=== PATIENT | male | born 1960 | race Caucasian/White ===

== ENCOUNTER 2020-07-13 21:46 | Inpatient (IN) | payer OTHER, SELFPAY ==
[2020-07-13 21:48] VITALS: BP 195/106; PULSE 103; RESP 18; TEMP 36.3; O2SAT 95; BMI 44.2
[2020-07-13] MEDS: Cefazolin 1 GM/50 ML BAG IV (22:35)
[2020-07-13 22:54] LABS: Absolute Neutrophil Count 6.4 X10^3/uL (2.0-7.7); Basophil# 0.04 X10^3/uL; Basophil% 0.4 % (0-1); Eosinophil# 0.27 X10^3/uL; Hematocrit 34.6 % (40-54); Hemoglobin 10.8 g/dL (13.0-16.5); Lymphocyte % 15.4 % (19-41); Mean Corp Hgb Conc 31.2 g/dL (32-36); Mean Corpuscular Hgb 27.4 pg (27.0-32.0); Mean Corpuscular Volume 87.8 fL (80-94); Mean Platelet Vol. 9.4 fl (6.2-12.0); Monocyte# 0.87 X10^3/uL; Monocyte% 9.6 % (0-10); NRBC Flagged by Analyzer 0 % (0-5); Neutrophil % 70.5 % (47-70); Platelet Count 162 K/mm3 (150-450); RBC Distribution Width SD 42.1 fl (35.1-43.9); Red Blood Count 3.94 M/mm3 (4.6-6.2); White Blood Count 9.1 K/mm3 (4.4-11.0)
[2020-07-13 23:04] LABS: International Normalized Ratio 1.1
[2020-07-13 23:05] LABS: Partial Thromboplast Time 30.2 Seconds (24.1-36.2)
[2020-07-13 23:09] LABS: D-Dimer Quantitative (DVT/PE) 1.54 FEU/ug/m (0.27-0.49)
[2020-07-13 23:13] LABS: ALB/GLOB Ratio 0.7 RATIO (0.9-2.4); AST(SGOT) 15 U/L (15-37); Alanine Aminotransfer ALT/SGPT 18 U/L (16-61); Albumin, Serum 2.9 g/dL (3.2-5.0); Alkaline Phosphatase 74 U/L (45-117); Anion Gap 7 (5-15); BUN 44 mg/dL (7-18); BUN/Creat Ratio 12.7 RATIO (10-20); Calcium,Total 7.9 mg/dL (8.5-10.1); Chloride 111 mmol/L (98-107); Creatinine, Serum 3.46 mg/dL (0.70-1.30); EST Glomerular Filtration Rate 19 mL/min (>60); Est Glom Filt Rate - Afr Amer 23 mL/min (>60); Estimated Creatinine Clearance 22.86 ml/min; Globulin 4.4 g/dL (2.2-4.2); Glucose 230 mg/dL (74-106); Potassium 3.9 mmol/L (3.5-5.1); Protein, Total 7.3 g/dL (6.4-8.2); Sodium Level 142 mmol/L (136-145)
[2020-07-13] MEDS: Enoxaparin 150 MG/ML Syringe SC (23:50)
[2020-07-13] MEDS: 0.9% Normal Saline 1,000 ML 1000 ML IV (23:50)
[2020-07-14] VITALS (13 sets, daily range): BP systolic 140–216; BP diastolic 71–107; PULSE 64–83; RESP 15–20; TEMP 36.4–37.3; O2SAT 94–98; BMI 44.2; BMI 44.3
--- NOTE | 2020-07-14 00:15 | HP.PCM_ITS ---
Problem List (1) Cellulitis Status: Acute Qualifiers: Site of cellulitis: extremity Site of cellulitis of extremity: lower extremity Laterality: left Qualified Code(s): L03.116 - Cellulitis of left lower limb (2) DVT (deep venous thrombosis) Status: Suspected Qualifiers: DVT location: lower extremity Affected thrombotic vein of extremity: unspecified vein of extremity Chronicity: acute Laterality: left Qualified Code(s): I82.402 - Acute embolism and thrombosis of unspecified deep veins of left lower extremity (3) Hypertension Status: Chronic Qualifiers: Hypertension type: essential hypertension Qualified Code(s): I10 - Essential (primary) hypertension (4) Diabetes mellitus, type II Status: Chronic Qualifiers: 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 The patient is a 60 y/o M w/ PMHx: Suspect CKD stage IV, Diabetes mellitus type II, HTN, Morbid obesity, RUBI who presents to the [facility] ED on 07/14/20 with history of increased edema, redness and pain to the left lower extremity starting over the last 3 days without fever or chills although more market over the last 2 days. He notes LLE injury 2-3 years prior with no evidence of DVT at that time. No recent travel or increased DVT risk. He notes discomfort is dull, aching, constant, 3-6 out of 10 in severity. Work-up in the ED included T 97.3, heart 103, BP 195/106, respiratory rate 18, 95% on room air, CBC with WBC 9.1, hemoglobin 10.8, platelet 162 with increased immature granulocytes noted, coags unremarkable except d-dimer elevated 1.54, CMP with chloride 111, BUN/creatinine 44/3.46, glucose 230 otherwise not marked appearing, blood culture x2 pending per ED. In the ED patient administered Ancef as well as therapeutic Lovenox 150 mg subcu x1. Past Medical History Past Medical History (Chronic Problems): Chronic Problems Hypertension (Chronic) Diabetes mellitus, type II (Chronic) Morbid obesity (Chronic) Anemia (Chronic) Allergies No Known Allergies Allergy (Verified 07/13/20 21:52) Surgical History: - - Interventions for kidney stones including lithotripsy and retrieval. Psychiatric History: No pertinent psych hx Lives: Spouse/ Significant Other Smoking Status: Never smoker Tobacco Use: Non-smoker Alcohol: None Drugs: None - *Family History Maternal History Items: - - Patient denies any market maternal family history including heart disease, diabetes or cancer noting that she unfortunately passed secondary to complications with a motor vehicle accident. Paternal History Items: Heart Disease, - - Patient notes paternal family history of heart disease. Review of Systems Constitutional: Denies: Anorexia, Chills, Fever, Malaise, Weakness, Weight Change, Fatigue HEENT: Denies: Head Aches, Sinus Congestion, Sinus Drainage Cardiovascular: Reports: Edema. Denies: Chest Pain, Palpitations Respiratory: Denies: Cough, Shortness of breath at rest, Sputum production Gastrointestinal: Denies: Abdominal Pain, Nausea, Vomiting Genitourinary: Denies: Dysuria Musculoskeletal: Reports: Leg Pain. Denies: Joint Pain, Joint Tenderness Skin: Reports: Skin Changes. Denies: Rash, Wounds Neurological: Denies: Numbness, Tingling, Focal weakness Psychiatric: Denies: Anxiety, Depression, Homicidal Ideations, Suicidal Ideations Hematologic/ Lymphatic: Denies: Easy Bruising, Easy Bleeding VTE Information - Inpt Only VTE Present on Admission: No - Suspected, pending duplex US VTE Mechan Device Prophylaxis: SCD's VTE Pharm Prophylaxis ordered?: Yes Patient Problems: Active and Suspected Problems Cellulitis (Acute) DVT (deep venous thrombosis) (Suspected) Chronic renal disease, stage IV (Suspected) RUBI (obstructive sleep apnea) (Suspected) Subjective: Seated upright in the bed, fatigued appearance, no acute distress otherwise. Objective: Physical Examination: General: awake, alert, oriented x 3 and cooperative, seated upright in the ED bed in no apparent distress. Skin: normal color, turgor, no icterus, cyanosis except noted likely bilateral lower extremity chronic venous stasis skin changes in addition to acute significant 3+ pitting edema left foot to knee, erythema extending from mid sommer up to proximal inner thigh with no obvious injury or bite noted. HEENT: AT/NC, EOMI, PERRLA, MMM, no carotid bruits or JVD noted; however, habitus makes examination difficult with thickened neck. Lungs: CTA bilaterally, moderate effort, moderate decrease BL bases, no rales, ronchi or wheezing. Heart: Regular rate and rhythm; no gallop, rub audible. Abdomen: soft, morbidly obese, NTTP, ND, normal BS, difficult to assess HSM secondary to habitus. Extremities: no cyanosis, clubbing, see skin, significant 3+ pitting edema left lower extremity as noted. Neurological: patient awake, alert, oriented x 3; cognitive function intact; pupils equally reactive to light and accomodation; cranial nerves II-XII grossly normal, moving all 4 extremities, no focal deficits, strength mildly to moderately global decrease secondary to acute complaints. Psychiatric: affect appears normal, no acute evidence of depressive or anxiety feelings. - Physical Exam Vitals/I&O's: Vital Signs Temp Pulse Resp BP Pulse Ox 97.3 F L 103 H 18 195/106 H 95 07/13/20 21:48 07/13/20 21:48 07/13/20 21:48 07/13/20 21:48 07/13/20 21:48 Oxygen Delivery Method CPAP Weight: 308 lb 10.354 oz Body Mass Index (BMI) 44.2 Intake and Output for Last 24 Hours 07/12/20 07/13/20 07/14/20 23:59 23:59 23:59 Intake Total 50 / 50 Balance 50 / 50 Laboratory Results 07/13/20 22:30: WBC 9.1, RBC 3.94 L, Hgb 10.8 L, Hct 34.6 L, MCV 87.8, MCH 27.4, MCHC 31.2 L, RDW Std Deviation 42.1, RDW Coeff of Sue 13.0, Plt Count 162, MPV 9.4, Immature Gran % (Auto) 1.100 H, Neut % (Auto) 70.5 H, Lymph % (Auto) 15.4 L , Hughes % (Auto) 9.6, Eos % (Auto) 3.0, Baso % (Auto) 0.4, Absolute Neuts (auto) 6.4, Absolute Lymphs (auto) 1.40, Nucleated RBC % 0 09/12/20 22:30: PT 14.0, INR 1.1, APTT 30.2, D-Dimer Quant (PE/DVT) 1.54 H* 07/13/20 22:30: Sodium 142, Potassium 3.9, Chloride 111 H, Carbon Dioxide 24.0, Anion Gap 7, BUN 44 H, Creatinine 3.46 H, Estim Creat Clear Calc 22.86, Est GFR (MDRD) Af Amer 23 L, Est GFR (MDRD) Non-Af 19 L, BUN/Creatinine Ratio 12.7, Glucose 230 H, Calcium 7.9 L, Total Bilirubin 0.20, AST 15, ALT 18, Alkaline Phosphatase 74, Total Protein 7.3, Albumin 2.9 L, Globulin 4.4 H, Albumin/Globulin Ratio 0.7 L Current Medications Sodium Chloride () 1,000 mls @ 1,000 mls/hr IV .Q1H ONE Stop: 07/14/20 00:32 Last Admin: 07/13/20 23:50 Dose: 1,000 mls/hr Documented by: Assessment/Plan All Active Problems Cellulitis (Acute) The patient is a 60 y/o M w/ PMHx: Suspect CKD stage IV, Diabetes mellitus type II, HTN, Morbid obesity, RUBI who presents to the [facility] ED on 07/14/20 with history of increased edema, redness and pain to the left lower extremity starting over the last 3 days without fever or chills although more market over the last 2 days. 1. Left lower extremity Cellulitis with High Suspicion associated DVT with elevated D-dimer: Will admit to surgical floor, maintain on IV Rocephin, plan repeat CBC in AM, continue affected extremity elevation above heart when seated and in bed, monitor erythema outline with VS checks, plan to obtain duplex ultrasound in a.m. Patient given therapeutic lovenox dose x 1 in the ED. Once US obtained will initiate oral regimen if appropriate with attention to patient underlying renal disease/function. 2. Suspected Chronic Kidney Disease Stage IV: Admission BUN/Cr 44/3.46, baseline renal function unclear as last noted from 2012 was 2.0, repeat BMP in AM. 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 3. Diabetes mellitus type II: Hold oral diabetic medication, obtaining hemoglobin A1c, ADA diet and accu checks w/ ISS. 4. Hypertension: Continue home regimen including Cardura, losartan, metoprolol, PRN hydralazine. 5. Morbid Obesity: Weight loss and lifestyle changes encouraged, nutrition consulted. 6. Anemia, Normocytic, Suspected Chronic: Admission Hgb 10.8, baseline unclear, suspect chronic. 7. Suspect RUBI: Encouraged outpatient sleep study. 8. DVT prophylaxis: SCDs, patient administered therapeutic Lovenox 150 mg subcu x1 now therefore given renal function will hold on additional prophylactic/therapeutic regimen pending duplex ultrasound in AM. Inpatient E&M: 58731 Init Hosp L3
--- NOTE | 2020-07-14 01:31 | VDLE_ITS ---
Reason For Study: Swelling Procedure LEFT Exam performed portable in patient room. GSV is normal. A preliminary report was called and/or faxed CFV is compressible, spontaneous, phasic, to Eva Sarkar NP. competent, and demonstrates normal augmentation. FV is compressible, spontaneous, phasic, competent and demonstrates normal augmentation. POP V is compressible, spontaneous, phasic, competent and demonstrates normal augmentation. T/P Trunk is compressible. PTV is compressible. LT PerV is compressible. Interpretation Summary Deep veins of the left lower extremity are patent and compressible segmentally. There is no evidence of left lower extremity deep vein thrombosis. Valvular competence appears intact within the proximal deep venous system on the left . The left great saphenous vein appears patent and compressible segmentally. Ordering Physician: Pepper Taylor Referring Physician: Farooq Jerez Performed By: Ruthy Solis RVT
[2020-07-14 01:46] LABS: Magnesium 2.1 mg/dL (1.6-2.6)
[2020-07-14] MEDS: hydrALAZINE 20 MG/ML Vial 10 MG IV ×3 (02:15→16:21)
[2020-07-14] MEDS: 0.9% Saline Lock 10 ML Syringe IV ×2 (02:15→06:38)
[2020-07-14 02:58] LABS: Hemoglobin A1c 7.9 % (3.8-5.6)
--- NOTE | 2020-07-14 03:32 | ED.DCSUM_ITS ---
- ER Visit Summary Date of Service: 07/14/20 Chief Complaint: Left leg redness and swelling History of Present Illness: The patient is a 60 M who presents with left leg redness and swelling that is been getting worse over the past 2 days. Patient states it is localized to the left lower leg. Patient describes his pain is dull. Patient states the pain is worse with palpation. Patient denies any fevers or chills. Patient denies any nausea or vomiting. Patient denies any discharge or drainage. Patient denies any chest pain or shortness of breath. Patient does have a history of hypertension and diabetes. Patient states he is scheduled for evaluation of his kidneys on Wednesday. Physical Examination: Vital signs are stable except for an elevated blood pressure 195/106. Patient is afebrile. Patient is in no acute distress. Oral mucosa is pink and moist. Neck is supple. Trachea is midline. There is no JVD. Heart was regular rate and rhythm. Lungs are clear and equal bilaterally. Abdomen is soft. Bowel sounds are normal. There is no tenderness. Extremities are intact. There is edema and tenderness over the left lower leg. There is also erythema and warmth. There is no discharge or drainage. There is no evidence of any abscess. Sensation was intact light touch in all digits. Capillary refill was less than 2 seconds in all digits. Test Results: CBC was within normal limits. Basic metabolic profile showed an elevated BUN and creatinine of 44 and 3.46 respectively. D-dimer was also elevated at 1.54. PT with INR and PTT were obtained and were normal. Emergency Department Course and Treatment: Patient was given a dose of Ancef here in the emergency department. Patient was also given a dose of Lovenox. Given the elevation of his BUN and creatinine which were elevated from the only other results from 2012 along with his cellulitis and elevated d-dimer, I feel the patient would benefit from admission. Case was discussed with the hospitalist. She will admit the patient to her service. Patient understood and was agreeable with the plan. All questions were answered. Disposition: Admit to hospital Impression: 1. Cellulitis left leg 2. Elevated d-dimer 3. Acute kidney injury This note was generated with [employer] software. It may contain incorrect words, spelling, and punctuation that were not noted in review of the chart prior to signing ED Disposition - Plan for ED Patient: Disposition: [facility] Diagnosis: Cellulitis, Elevated d-dimer, Acute kidney injury
[2020-07-14 06:16] LABS: Absolute Lymphocyte Count 1.52 X10^3/uL (0.83-4.51); Absolute Neutrophil Count 5.5 X10^3/uL (2.0-7.7); Basophil# 0.04 X10^3/uL; Basophil% 0.5 % (0-1); Eosinophil# 0.27 X10^3/uL; Eosinophils% 3.2 % (0-5); Hematocrit 32.8 % (40-54); Hemoglobin 10.3 g/dL (13.0-16.5); Lymphocyte # 1.52 X10^3/ul (4.0); Lymphocyte % 18.2 % (19-41); Mean Corp Hgb Conc 31.4 g/dL (32-36); Mean Corpuscular Hgb 27.7 pg (27.0-32.0); Mean Corpuscular Volume 88.2 fL (80-94); Mean Platelet Vol. 9.7 fl (6.2-12.0); Monocyte# 0.89 X10^3/uL; Monocyte% 10.7 % (0-10); NRBC Flagged by Analyzer 0 % (0-5); Neutrophil # 5.53 X10^3/uL (2.7-7.7); Neutrophil % 66.2 % (47-70); Platelet Count 146 K/mm3 (150-450); RBC Distribution Width CV 13.1 % (11.6-14.6); RBC Distribution Width SD 42.5 fl (35.1-43.9); Red Blood Count 3.72 M/mm3 (4.6-6.2); White Blood Count 8.4 K/mm3 (4.4-11.0)
[2020-07-14] MEDS: Insulin Lispro 100 UNIT/ML INSULN.PEN SC ×3 (06:39→21:40)
[2020-07-14 06:44] LABS: ALB/GLOB Ratio 0.7 RATIO (0.9-2.4); AST(SGOT) 14 U/L (15-37); Alanine Aminotransfer ALT/SGPT 18 U/L (16-61); Albumin, Serum 2.7 g/dL (3.2-5.0); Alkaline Phosphatase 62 U/L (45-117); Anion Gap 7 (5-15); BUN 40 mg/dL (7-18); BUN/Creat Ratio 12.5 RATIO (10-20); Calcium,Total 7.7 mg/dL (8.5-10.1); Chloride 111 mmol/L (98-107); EST Glomerular Filtration Rate 21 mL/min (>60); Est Glom Filt Rate - Afr Amer 25 mL/min (>60); Estimated Creatinine Clearance 24.71 ml/min; Glucose 168 mg/dL (74-106); Potassium 3.8 mmol/L (3.5-5.1); Protein, Total 6.7 g/dL (6.4-8.2); Sodium Level 141 mmol/L (136-145)
[2020-07-14 07:01] LABS: Bedside Glucose 163 mg/dL (70-110)
--- NOTE | 2020-07-14 10:20 | PN_ITS ---
<MelloEva RN ADMISSION - Last Filed: 07/14/20 10:32> Patient Problems: Active and Suspected Problems Cellulitis (Acute) DVT (deep venous thrombosis) (Suspected) Chronic renal disease, stage IV (Suspected) RUBI (obstructive sleep apnea) (Suspected) Elevated d-dimer (Acute) Acute kidney injury (Acute) Subjective: Patient seen and examined. Left lower extremity remains red and warm to touch. Patient denies fever, chills. Denies significant left lower extremity pain. Denies history of DVT. - Physical Exam Vitals/I&O's: Vital Signs Temp Pulse Resp BP Pulse Ox 98.4 F 75 18 169/82 H 96 07/14/20 06:34 07/14/20 06:38 07/14/20 06:34 07/14/20 06:34 07/14/20 07:04 Oxygen Delivery Method Room Air Weight: 308 lb 10.354 oz Body Mass Index (BMI) 44.2 Intake and Output for Last 24 Hours 07/12/20 07/13/20 07/14/20 23:59 23:59 23:59 Intake Total 50 / 50 1000 / 1000 Output Total 850 / 850 Balance 50 / 50 150 / 150 General: Alert, Oriented x3, Cooperative HEENT: Atraumatic, PERRLA, EOMI, Normocephalic Neck: Supple, No JVD, Negative Carotid Bruits Lungs: Clear to auscultation, Normal air movement Cardiovascular: Regular rate, No murmurs Abdomen: Bowel Sounds Present, Soft, Non Tender Extremities: No clubbing, No cyanosis, Edema - Left lower extremity Skin: No rashes, No breakdown, - - Left lower extremity erythema and warm to touch. No wounds noted. Musculoskeletal: No Tenderness to Palpation of Joints or Extremities Neurological: Cranial nerves II-XII grossly intact, Neuro grossly intact Psych/Mental Status: Normal Affect, Appropriate Laboratory Results 07/13/20 22:30: WBC 9.1, RBC 3.94 L, Hgb 10.8 L, Hct 34.6 L, MCV 87.8, MCH 27.4, MCHC 31.2 L, RDW Std Deviation 42.1, RDW Coeff of Sue 13.0, Plt Count 162, MPV 9.4, Immature Gran % (Auto) 1.100 H, Neut % (Auto) 70.5 H, Lymph % (Auto) 15.4 L , [place] % (Auto) 9.6, Eos % (Auto) 3.0, Baso % (Auto) 0.4, Absolute Neuts (auto) 6.4, Absolute Lymphs (auto) 1.40, Nucleated RBC % 0 07/13/20 22:30: PT 14.0, INR 1.1, APTT 30.2, D-Dimer Quant (PE/DVT) 1.54 H* 07/13/20 22:30: Sodium 142, Potassium 3.9, Chloride 111 H, Carbon Dioxide 24.0, Anion Gap 7, BUN 44 H, Creatinine 3.46 H, Estim Creat Clear Calc 22.86, Est GFR (MDRD) Af Amer 23 L, Est GFR (MDRD) Non-Af 19 L, BUN/Creatinine Ratio 12.7, Glucose 230 H, Calcium 7.9 L, Total Bilirubin 0.20, AST 15, ALT 18, Alkaline Phosphatase 74, Total Protein 7.3, Albumin 2.9 L, Globulin 4.4 H, Albumin/Globulin Ratio 0.7 L 07/13/20 22:30: Magnesium 2.1 07/13/20 22:30: Hemoglobin A1c 7.9 H 07/14/20 05:47: WBC 8.4, RBC 3.72 L, Hgb 10.3 L, Hct 32.8 L, MCV 88.2, MCH 27.7, MCHC 31.4 L, RDW Std Deviation 42.5, RDW Coeff of Sue 13.1, Plt Count 146 L, MPV 9.7, Immature Gran % (Auto) 1.200 H, Neut % (Auto) 66.2, Lymph % (Auto) 18.2 L, [place] % (Auto) 10.7 H, Eos % (Auto) 3.2, Baso % (Auto) 0.5, Absolute Neuts (auto) 5.5, Absolute Lymphs (auto) 1.52, Nucleated RBC % 0 07/14/20 05:47: Sodium 141, Potassium 3.8, Chloride 111 H, Carbon Dioxide 23.0, Anion Gap 7, BUN 40 H, Creatinine 3.20 H, Estim Creat Clear Calc 24.71, Est GFR (MDRD) Af Amer 25 L, Est GFR (MDRD) Non-Af 21 L, BUN/Creatinine Ratio 12.5, Glucose 168 H, Calcium 7.7 L, Total Bilirubin 0.20, AST 14 L, ALT 18, Alkaline Phosphatase 62, Total Protein 6.7, Albumin 2.7 L, Globulin 4.0, Albumin/Globulin Ratio 0.7 L 07/14/20 06:38: POC Glucose 163 H Current Medications Acetaminophen (Tylenol) 650 mg PO Q6H PRN PRN PRN Reason: Pain Score 1-10/Temp > 100.7 F Al Hydroxide/Mg Hydroxide (Mylanta Ii) 30 ml PO Q6H PRN PRN PRN Reason: Gastric Burning Albuterol Sulfate (Ventolin Aerosols) 2.5 mg INHALATION Q2H PRN PRN PRN Reason: Dyspnea, wheezing Doxazosin Mesylate (Cardura) 4 mg PO QHS KAY Guaifenesin (Robitussin) 20 ml PO Q4H PRN PRN PRN Reason: COUGH Hydralazine HCl (Apresoline Iv) 10 mg IV Q4H PRN PRN PRN Reason: SBP > 160 Last Admin: 07/14/20 06:38 Dose: 10 mg Documented by: Ceftriaxone Sodium (Rocephin) 1 gm in 50 mls @ 100 mls/hr IV Q24 KAY Sodium Chloride () 250 mls @ 15 mls/hr IV .[id number] PRN PRN Reason: Saline Flush Sodium Chloride () 250 mls @ 15 mls/hr IV .[id number] PRN PRN Reason: Additional IVPB Infusion Insulin Human Lispro (Humalog Kwikpen (Bkc)) 0 unit SC ACHS [facility]; Protocol Last Admin: 07/14/20 06:39 Dose: 1 units Documented by: Losartan Potassium (Cozaar) 100 mg PO DAILY KAY Magnesium Hydroxide (Milk Of Magnesia) 30 ml PO DAILY PRN PRN PRN Reason: Constipation Melatonin (Melatonin) 3 mg PO QHS PRN PRN PRN Reason: INSOMNIA Metoprolol Succinate (Toprol Xl (Beta Sanya)) 50 mg PO DAILY KAY Morphine Sulfate () 2 mg IV Q3H PRN PRN PRN Reason: Pain Score 6-10/10 Nutritional Formula (Lactose Free) (Glucerna Shake) 120 ml PO 4X/DAY [facility] Ondansetron HCl (Zofran) 4 mg IV Q8H PRN PRN PRN Reason: NAUSEA/VOMITING Oxycodone HCl (Oxyir) 5 mg PO Q4H PRN PRN PRN Reason: Pain Score 4-5/10 Prochlorperazine Edisylate (Compazine Iv) 5 mg IV Q4H PRN PRN PRN Reason: Breakthrough nausea/vomiting Psyllium Hydrophilic Mucilloid (Metamucil) 1 packet PO DAILY PRN PRN PRN Reason: Constipation Senna/Docusate Sodium (Senokot-S, Shanae-Colace) 2 tablet PO BID PRN PRN PRN Reason: Constipation Sodium Chloride () 10 - 40 ml IV UD PRN PRN Reason: SALINE FLUSH Last Admin: 07/14/20 06:38 Dose: 20 ml Documented by: Throat Lozenges (Cepacol Sore Throat Lozenge) 1 lozenge MUCOUS MEM Q2H PRN PRN PRN Reason: SORE THROAT Medical Necessity - Tobacco Use Smoking Status: Never smoker Tobacco Use: Non-smoker Assessment/Plan All Active Problems Cellulitis (Acute) Elevated d-dimer (Acute) Acute kidney injury (Acute) 1. Left lower extremity cellulitis-DVT ruled out. On IV Rocephin. D-dimer elevated. Preliminary read for lower extremity duplex ultrasound negative for DVT. Elevate left lower extremity. 2. Chronic kidney disease stage IV-patient reports his kidney function was noted to be worse by PCP recently. He is scheduled for renal ultrasound next week. Trend BMP. 3. Type 2 diabetes mellitus-hemoglobin A1c 7.9%. Accu-Cheks with sliding scale insulin. 4. Hypertension-continue home losartan, metoprolol regimen. Patient reports his blood pressure has been difficult to control as outpatient. PRN hydralazine for systolic blood pressure greater than 160. If blood pressure remains eleva diamante, will add additional oral regimen. 5. Morbid obesity-encouraged diet and lifestyle modifications. 6. Chronic normocytic anemia-stable, trend CBC. DVT prophylaxis-Lovenox This patient was seen by SUMAN Kimbrough under the supervision of Dr. Hermosillo. <Rain Hermosillo - Last Filed: 07/14/20 10:54> - Physical Exam Vitals/I&O's: Vital Signs Temp Pulse Resp BP Pulse Ox 98.4 F 75 18 169/82 H 96 07/14/20 06:34 07/14/20 06:38 07/14/20 06:34 07/14/20 06:34 07/14/20 07:04 Oxygen Delivery Method Room Air Weight: 308 lb 10.354 oz Body Mass Index (BMI) 44.2 Intake and Output for Last 24 Hours 07/12/20 07/13/20 07/14/20 23:59 23:59 23:59 Intake Total 50 / 50 1000 / 1000 Output Total 850 / 850 Balance 50 / 50 150 / 150 Laboratory Results 07/13/20 22:30: WBC 9.1, RBC 3.94 L, Hgb 10.8 L, Hct 34.6 L, MCV 87.8, MCH 27.4, MCHC 31.2 L, RDW Std Deviation 42.1, RDW Coeff of Sue 13.0, Plt Count 162, MPV 9.4, Immature Gran % (Auto) 1.100 H, Neut % (Auto) 70.5 H, Lymph % (Auto) 15.4 L , [place] % (Auto) 9.6, Eos % (Auto) 3.0, Baso % (Auto) 0.4, Absolute Neuts (auto) 6.4, Absolute Lymphs (auto) 1.40, Nucleated RBC % 0 07/13/20 22:30: PT 14.0, INR 1.1, APTT 30.2, D-Dimer Quant (PE/DVT) 1.54 H* 07/13/20 22:30: Sodium 142, Potassium 3.9, Chloride 111 H, Carbon Dioxide 24.0, Anion Gap 7, BUN 44 H, Creatinine 3.46 H, Estim Creat Clear Calc 22.86, Est GFR (MDRD) Af Amer 23 L, Est GFR (MDRD) Non-Af 19 L, BUN/Creatinine Ratio 12.7, Glucose 230 H, Calcium 7.9 L, Total Bilirubin 0.20, AST 15, ALT 18, Alkaline Phosphatase 74, Total Protein 7.3, Albumin 2.9 L, Globulin 4.4 H, Albumin/Globulin Ratio 0.7 L 07/13/20 22:30: Magnesium 2.1 07/13/20 22:30: Hemoglobin A1c 7.9 H 07/14/20 05:47: WBC 8.4, RBC 3.72 L, Hgb 10.3 L, Hct 32.8 L, MCV 88.2, MCH 27.7, MCHC 31.4 L, RDW Std Deviation 42.5, RDW Coeff of Sue 13.1, Plt Count 146 L, MPV 9.7, Immature Gran % (Auto) 1.200 H, Neut % (Auto) 66.2, Lymph % (Auto) 18.2 L, [place] % (Auto) 10.7 H, Eos % (Auto) 3.2, Baso % (Auto) 0.5, Absolute Neuts (auto) 5.5, Absolute Lymphs (auto) 1.52, Nucleated RBC % 0 07/14/20 05:47: Sodium 141, Potassium 3.8, Chloride 111 H, Carbon Dioxide 23.0, Anion Gap 7, BUN 40 H, Creatinine 3.20 H, Estim Creat Clear Calc 24.71, Est GFR (MDRD) Af Amer 25 L, Est GFR (MDRD) Non-Af 21 L, BUN/Creatinine Ratio 12.5, Glucose 168 H, Calcium 7.7 L, Total Bilirubin 0.20, AST 14 L, ALT 18, Alkaline Phosphatase 62, Total Protein 6.7, Albumin 2.7 L, Globulin 4.0, Albumin/Globulin Ratio 0.7 L 07/14/20 06:38: POC Glucose 163 H Current Medications Acetaminophen (Tylenol) 650 mg PO Q6H PRN PRN PRN Reason: Pain Score 1-10/Temp > 100.7 F Al Hydroxide/Mg Hydroxide (Mylanta Ii) 30 ml PO Q6H PRN PRN PRN Reason: Gastric Burning Albuterol Sulfate (Ventolin Aerosols) 2.5 mg INHALATION Q2H PRN PRN PRN Reason: Dyspnea, wheezing Doxazosin Mesylate (Cardura) 4 mg PO QHS KAY Enoxaparin Sodium (Lovenox) 40 mg SC DAILY@0600 KAY Guaifenesin (Robitussin) 20 ml PO Q4H PRN PRN PRN Reason: COUGH Hydralazine HCl (Apresoline Iv) 10 mg IV Q4H PRN PRN PRN Reason: SBP > 160 Last Admin: 07/14/20 06:38 Dose: 10 mg Documented by: Ceftriaxone Sodium (Rocephin) 1 gm in 50 mls @ 100 mls/hr IV Q24 KAY Sodium Chloride () 250 mls @ 15 mls/hr IV .[id number] PRN PRN Reason: Saline Flush Sodium Chloride () 250 mls @ 15 mls/hr IV .[id number] PRN PRN Reason: Additional IVPB Infusion Insulin Human Lispro (Humalog Kwikpen (Bkc)) 0 unit SC ACHS [facility]AY; Protocol Last Admin: 07/14/20 06:39 Dose: 1 units Documented by: Losartan Potassium (Cozaar) 100 mg PO DAILY [facility] Magnesium Hydroxide (Milk Of Magnesia) 30 ml PO DAILY PRN PRN PRN Reason: Constipation Melatonin (Melatonin) 3 mg PO QHS PRN PRN PRN Reason: INSOMNIA Metoprolol Succinate (Toprol Xl (Beta Sanya)) 50 mg PO DAILY [facility] Morphine Sulfate () 2 mg IV Q3H PRN PRN PRN Reason: Pain Score 6-10/10 Nutritional Formula (Lactose Free) (Glucerna Shake) 120 ml PO 4X/DAY [facility] Ondansetron HCl (Zofran) 4 mg IV Q8H PRN PRN PRN Reason: NAUSEA/VOMITING Oxycodone HCl (Oxyir) 5 mg PO Q4H PRN PRN PRN Reason: Pain Score 4-5/10 Prochlorperazine Edisylate (Compazine Iv) 5 mg IV Q4H PRN PRN PRN Reason: Breakthrough nausea/vomiting Psyllium Hydrophilic Mucilloid (Metamucil) 1 packet PO DAILY PRN PRN PRN Reason: Constipation Senna/Docusate Sodium (Senokot-S, Shanae-Colace) 2 tablet PO BID PRN PRN PRN Reason: Constipation Sodium Chloride () 10 - 40 ml IV UD PRN PRN Reason: SALINE FLUSH Last Admin: 07/14/20 06:38 Dose: 20 ml Documented by: Throat Lozenges (Cepacol Sore Throat Lozenge) 1 lozenge MUCOUS MEM Q2H PRN PRN PRN Reason: SORE THROAT Assessment/Plan Patient seen by Eva Sarkar NP-C under my supervision Patient seen and examined. He was admitted with a complaint of LLE swelling and redness. He is being managed for LLE cellulitis. He still complains of pain in his right calf. He denies any nausea, vomiting, fever or chills. Review of systems otherwise negative. He denies any history of DVT. Labs and vitals reviewed. O/E: Vital Signs Temp Pulse Resp BP Pulse Ox 98.4 F 75 18 169/82 H 96 07/14/20 06:34 07/14/20 06:38 07/14/20 06:34 07/14/20 06:34 07/14/20 07:04 General: Alert, Oriented x3, Cooperative HEENT: Atraumatic, PERRLA, EOMI, Normocephalic Neck: Supple, No JVD, Negative Carotid Bruits Lungs: Clear to auscultation, Normal air movement Cardiovascular: Regular rate, No murmurs Abdomen: Bowel Sounds Present, Soft, Non Tender Extremities: No clubbing, No cyanosis, Edema - Left lower extremity Skin: No rashes, No breakdown, LLE erythema and mild tenderness; no visible wounds; has calf tenderness. Musculoskeletal: No Tenderness to Palpation of Joints or Extremities Neurological: Cranial nerves II-XII grossly intact, Neuro grossly intact Psych/Mental Status: Normal Affect, Appropriate Patient currently on IV rocephin; will continue. Duplex of RLE negative for DVT. continue metoprolol and losartan for BP control. BP is elevated, and is in the 180s systolic. IV hydralazine prn. Patient also has CKD stage 4, and is scheduled for a renal USG on outpatient basis. Trend BMP. Rest as per Eva WILL under my supervision. Inpatient E&M: 90001 Subs Hosp L2
[2020-07-14] MEDS: Ceftriaxone 1 GM/50 ML BAG IV (10:54)
[2020-07-14] MEDS: Metoprolol(XL)Succ 50 MG Tablet PO (10:54)
[2020-07-14] MEDS: Losartan Potassium 100 MG Tablet PO (10:54)
[2020-07-14 12:16] LABS: Bedside Glucose 222 mg/dL (70-110)
[2020-07-14 16:30] LABS: Bedside Glucose 148 mg/dL (70-110)
[2020-07-14] MEDS: Clonidine HCl 0.1 MG, Clonidine HCl 0.2 MG 0.3 MG PO (17:39)
[2020-07-14] MEDS: Doxazosin 4 MG Tablet PO (21:40)
[2020-07-14 21:50] LABS: Bedside Glucose 182 mg/dL (70-110)
[2020-07-15 02:47] VITALS: BP 177/89; PULSE 62; RESP 18; TEMP 36.6; O2SAT 93
[2020-07-15 02:58] VITALS: PULSE 62
[2020-07-15] MEDS: 0.9% Saline Lock 10 ML Syringe IV ×2 (02:58→10:21)
[2020-07-15] MEDS: hydrALAZINE 20 MG/ML Vial 10 MG IV (02:58)
[2020-07-15 03:52] VITALS: BP 144/74
[2020-07-15 06:23] LABS: Hematocrit 32.3 % (40-54); Hemoglobin 10.3 g/dL (13.0-16.5); Mean Corp Hgb Conc 31.9 g/dL (32-36); Mean Corpuscular Hgb 28.2 pg (27.0-32.0); Mean Corpuscular Volume 88.5 fL (80-94); Mean Platelet Vol. 9.6 fl (6.2-12.0); Platelet Count 140 K/mm3 (150-450); RBC Distribution Width CV 12.9 % (11.6-14.6); RBC Distribution Width SD 42.1 fl (35.1-43.9); Red Blood Count 3.65 M/mm3 (4.6-6.2); White Blood Count 6.8 K/mm3 (4.4-11.0)
[2020-07-15 06:43] LABS: Anion Gap 8 (5-15); BUN 36 mg/dL (7-18); BUN/Creat Ratio 12.2 RATIO (10-20); Calcium,Total 7.8 mg/dL (8.5-10.1); Chloride 110 mmol/L (98-107); Creatinine, Serum 2.95 mg/dL (0.70-1.30); EST Glomerular Filtration Rate 23 mL/min (>60); Est Glom Filt Rate - Afr Amer 28 mL/min (>60); Estimated Creatinine Clearance 26.81 ml/min; Glucose 190 mg/dL (74-106); Potassium 4.1 mmol/L (3.5-5.1); Sodium Level 141 mmol/L (136-145)
[2020-07-15] MEDS: Enoxaparin 30 MG/0.3 ML Syringe SC (06:53)
[2020-07-15 06:56] LABS: Bedside Glucose 194 mg/dL (70-110)
[2020-07-15 08:00] VITALS: O2SAT 95
--- NOTE | 2020-07-15 08:00 | US_ITS ---
STUDY: RENAL ULTRASOUND - COMPLETE REASON FOR EXAM: Male, 60 years old. ABN LABS TECHNIQUE: Ultrasound evaluation of the kidneys was performed with real-time and static rogers-scale imaging. COMPARISON: None. FINDINGS: RIGHT KIDNEY: Normal location of the right kidney, which is normal in size. The right kidney measures 12.9 cm x 6.6 x 6.8 cm. There is a normal cortex of the right kidney. The renal cortex measures 1.8 cm. Multiple cysts are seen. The largest cyst measures 3.4 cm x 3.2 cm x 3.7 cm. There is a 7 mm nonobstructive calculus. There is no right hydronephrosis. DISTAL RIGHT URETER: There is non-visualization of the distal right ureter. There is no demonstrated right ureterovesical junction calculus. There is a visualized right ureteral jet. LEFT KIDNEY: Normal location of the left kidney, which is normal in size. The left kidney measures 12.4 cm x 6.3 cm x 6.3 cm. There is a normal cortex of the left kidney. The renal cortex measures 1.7 cm. Multiple cysts are seen. The largest measures 3 cm x 3 cm x 2.5 cm. There is a 7 mm nonobstructive calculus. There is mild hydronephrosis of the left kidney. DISTAL LEFT URETER: There is non-visualization of the distal left ureter. There is no demonstrated left ureterovesical junction calculus. There is a visualized left ureteral jet. BLADDER: The distended urinary bladder has a volume of 248 ml. There is a normal wall thickness of the distended urinary bladder. There is no demonstrated mass within the urinary bladder. There are no demonstrated bladder calculi. US/Kidney and Bladder IMPRESSION: Multiple bilateral renal cysts. Nonobstructive bilateral intrarenal calculi. Electronically Signed: Gilmar Bonilla, at 12:43 EDT , Service support ,
[2020-07-15 08:36] VITALS: BP 159/79; PULSE 65; RESP 16; TEMP 36.6; O2SAT 93
[2020-07-15 10:21] VITALS: PULSE 65
[2020-07-15] MEDS: Ceftriaxone 1 GM/50 ML BAG IV (10:21)
[2020-07-15] MEDS: Metoprolol(XL)Succ 50 MG Tablet PO (10:21)
[2020-07-15] MEDS: Losartan Potassium 100 MG Tablet PO (10:21)
--- NOTE | 2020-07-15 10:50 | CASEMGMT ---
RN KAIT Face to Face with patient for initial transition planning/care coordination assessment. RN CM introduced self and role at [facility]. Patient lying in bed, alert and oriented, at bedside. Patient willing to participate in assessment and is able to answer all questions appropriately. Care providers, pharmacy, and demographics verified. Patient wishes to discharge home, denies need for home health at this time. Patient states he has no further needs or concerns at this time. CM to follow for discharge planning needs that may arise. PCP: [facility] Specialists: none Preferred Pharmacy: [facility] Insurance: [employer] ([employer]) Prescription Benefit:yes Living Will/HPOA: none LNOK: Living Arrangements: Patient lives with in a 2 story home with bed and bath on the main floor. Patient is independent at home. Transportation: self, DME/HHC: Patient states he has shower chair and grab bars at home. Patient denies previous HHC. Disposition Plan: Patient to discharge home with family support and follow-up plans in place. Ruthy COLEY, RN, CM
--- NOTE | 2020-07-15 10:52 | PCM.DC ---
- Discharge Diagnoses Current Active Problems: Current Active and Chronic Problems Cellulitis (Acute) Hypertension (Chronic) Diabetes mellitus, type II (Chronic) Morbid obesity (Chronic) Anemia (Chronic) Elevated d-dimer (Acute) You will use the following diet at home:: Calorie/Carbohydrate Controlled (specify 1200, 1400, etc) Discharge Activity: Return to Normal Activity Call your doctor if you observe: Fever of 101 or Higher, Shortness of breath, Dizziness, Fainting spells, Chest pain Additional Instructions: Recommend referral to nephrology by PCP. Allergies/Adverse Reactions: Allergies No Known Allergies Allergy (Verified 07/14/20 01:34) Medications to take at Discharge Doxazosin Mesylate [Cardura] 4 mg PO QHS 07/14/20 Glimepiride 8 mg PO DAILY 07/14/20 Losartan Potassium 100 mg PO DAILY 07/14/20 Metoprolol Succinate 50 mg PO DAILY 07/14/20 Amox/Clavulanate Tablet [Augmentin Tablet] 500 mg PO DAILY #5 tab 07/15/20 The following prescriptions were given: Amox/Clavulanate Tablet [Augmentin Tablet] 500 mg PO DAILY #5 tab Transmission Status: Pending to [facility] Primary Care Physician: Farooq Jerez MD [Primary Care Provider] - Please follow up with your Primary Care Physician in: 3-5 Days Test Results: Test results from this visit will be discussed in further detail at your follow-up appointment, if applicable. Proposed Discharge Date: 07/15/20
--- NOTE | 2020-07-15 10:54 | PCM.DC.SUM ---
<Eva Sarkar BRAND DESIGNER - Last Filed: 07/15/20 10:59> Discharge Date and Diagnosis Date of Admission: 07/14/20 Date of Discharge: 07/15/20 - Primary Discharge Diagnosis Acute Problems: Active Problems 1. Left lower extremity cellulitis-DVT ruled out. 2. Chronic kidney disease stage IV 3. Type 2 diabetes mellitus 4. Hypertension 5. Morbid obesity 6. Chronic normocytic anemia Suspected Problems: Suspected Problems DVT (deep venous thrombosis) (Suspected) Chronic renal disease, stage IV (Suspected) RUBI (obstructive sleep apnea) (Suspected) - Secondary Discharge Diagnosis Chronic Problems: Chronic Problems Hypertension (Chronic) Diabetes mellitus, type II (Chronic) Morbid obesity (Chronic) Anemia (Chronic) Hospital Course and Treatment Imaging Results: Operations: None Procedures: None Summary of Care Provided: The patient is a 60 year old M admitted 07/14/2020 due to LLE edema and redness. 1. Left lower extremity cellulitis-DVT ruled out. D-dimer elevated. Lower extremity duplex ultrasound negative for DVT. IV Rocephin during admission. Transition to Augmentin at discharge to complete course, renally dosed. Follow-up with PCP in 3 to 5 days. 2. Chronic kidney disease stage IV-patient reports his kidney function was noted to be worse by PCP recently. Renal ultrasound completed, report pending. Recommend referral by PCP to nephrology. 3. Type 2 diabetes mellitus-hemoglobin A1c 7.9%. Continue home oral regimen. 4. Hypertension-continue home losartan, metoprolol regimen. Patient reports his blood pressure has been difficult to control as outpatient. Continue follow-up with PCP for further blood pressure monitoring and medication adjustment. 5. Morbid obesity-encouraged diet and lifestyle modifications. 6. Chronic normocytic anemia-stable. General: Alert, Oriented x3, Cooperative HEENT: Atraumatic, PERRLA, EOMI, Normocephalic Neck: Supple, No JVD, Negative Carotid Bruits Lungs: Clear to auscultation, Normal air movement Cardiovascular: Regular rate, No murmurs Abdomen: Bowel Sounds Present, Soft, Non Tender Extremities: No clubbing, No cyanosis, Edema - Left lower extremity Skin: No rashes, No breakdown, - - Left lower extremity erythema and warm to touch. No wounds noted. Musculoskeletal: No Tenderness to Palpation of Joints or Extremities Neurological: Cranial nerves II-XII grossly intact, Neuro grossly intact Psych/Mental Status: Normal Affect, Appropriate Patient seen and examined prior to discharge. Physical assessment as noted above. Patient is stable for discharge with follow up recommendations as noted above. This patient was seen by SUMAN Kimbrough under the supervision of Dr. Schmitz. - Physical Exam Vitals/I&O's: Vital Signs Temp Pulse Resp BP Pulse Ox 97.8 F 65 16 159/79 H 93 07/15/20 08:36 07/15/20 10:21 07/15/20 08:36 07/15/20 08:36 07/15/20 08:36 Oxygen Delivery Method Room Air Weight: 308 lb 10.354 oz Body Mass Index (BMI) 44.2 Intake and Output for Last 24 Hours 07/13/20 07/14/20 07/15/20 23:59 23:59 23:59 Intake Total 50 / 50 2451.5 / 2451.5 Output Total 1650 / 1650 1000 / 1000 Balance 50 / 50 801.5 / 801.5 -1000 / -1000 Laboratory Results 07/14/20 12:04: POC Glucose 222 H 07/14/20 16:12: POC Glucose 148 H 07/14/20 21:36: POC Glucose 182 H 07/15/20 05:47: WBC 6.8, RBC 3.65 L, Hgb 10.3 L, Hct 32.3 L, MCV 88.5, MCH 28.2, MCHC 31.9 L, RDW Std Deviation 42.1, RDW Coeff of Sue 12.9, Plt Count 140 L, MPV 9.6 07/15/20 05:47: Sodium 141, Potassium 4.1, Chloride 110 H, Carbon Dioxide 23.0, Anion Gap 8, BUN 36 H, Creatinine 2.95 H, Estim Creat Clear Calc 26.81, Est GFR (MDRD) Af Amer 28 L, Est GFR (MDRD) Non-Af 23 L, BUN/Creatinine Ratio 12.2, Glucose 190 H, Calcium 7.8 L 07/15/20 06:50: POC Glucose 194 H Current Medications Acetaminophen (Tylenol) 650 mg PO Q6H PRN PRN PRN Reason: Pain Score 1-10/Temp > 100.7 F Al Hydroxide/Mg Hydroxide (Mylanta Ii) 30 ml PO Q6H PRN PRN PRN Reason: Gastric Burning Albuterol Sulfate (Ventolin Aerosols) 2.5 mg INHALATION Q2H PRN PRN PRN Reason: Dyspnea, wheezing Doxazosin Mesylate (Cardura) 4 mg PO QHS [facility] Last Admin: 07/14/20 21:40 Dose: 4 mg Documented by: Enoxaparin Sodium (Lovenox) 30 mg SC DAILY@0600 [facility] Last Admin: 07/15/20 06:53 Dose: 30 mg Documented by: Guaifenesin (Robitussin) 20 ml PO Q4H PRN PRN PRN Reason: COUGH Hydralazine HCl (Apresoline Iv) 10 mg IV Q4H PRN PRN PRN Reason: SBP > 160 Last Admin: 07/15/20 02:58 Dose: 10 mg Documented by: Ceftriaxone Sodium (Rocephin) 1 gm in 50 mls @ 100 mls/hr IV Q24 [facility] Last Admin: 07/15/20 10:21 Dose: 100 mls/hr Documented by: Sodium Chloride () 250 mls @ 15 mls/hr IV .[id number] PRN PRN Reason: Saline Flush Last Infusion: 07/14/20 13:40 Dose: 0 mls/hr Documented by: Sodium Chloride () 250 mls @ 15 mls/hr IV .[id number] PRN PRN Reason: Additional IVPB Infusion Insulin Human Lispro (Humalog Kwikpen (Bkc)) 0 unit SC ACHS [facility]; Protocol Last Admin: 07/15/20 06:53 Dose: Not Given Documented by: Losartan Potassium (Cozaar) 100 mg PO DAILY [facility] Last Admin: 07/15/20 10:21 Dose: 100 mg Documented by: Magnesium Hydroxide (Milk Of Magnesia) 30 ml PO DAILY PRN PRN PRN Reason: Constipation Melatonin (Melatonin) 3 mg PO QHS PRN PRN PRN Reason: INSOMNIA Metoprolol Succinate (Toprol Xl (Beta Sanya)) 50 mg PO DAILY [facility] Last Admin: 07/15/20 10:21 Dose: 50 mg Documented by: Morphine Sulfate () 2 mg IV Q3H PRN PRN PRN Reason: Pain Score 6-10/10 Ondansetron HCl (Zofran) 4 mg IV Q8H PRN PRN PRN Reason: NAUSEA/VOMITING Oxycodone HCl (Oxyir) 5 mg PO Q4H PRN PRN PRN Reason: Pain Score 4-5/10 Prochlorperazine Edisylate (Compazine Iv) 5 mg IV Q4H PRN PRN PRN Reason: Breakthrough nausea/vomiting Psyllium Hydrophilic Mucilloid (Metamucil) 1 packet PO DAILY PRN PRN PRN Reason: Constipation Senna/Docusate Sodium (Senokot-S, Shanae-Colace) 2 tablet PO BID PRN PRN PRN Reason: Constipation Sodium Chloride () 10 - 40 ml IV UD PRN PRN Reason: SALINE FLUSH Last Admin: 07/15/20 10:21 Dose: 10 ml Documented by: Throat Lozenges (Cepacol Sore Throat Lozenge) 1 lozenge MUCOUS MEM Q2H PRN PRN PRN Reason: SORE THROAT Discharge Diet: Carb Control Diet Discharge Activity: Return to Normal Activity Call your doctor if you observe: Fever of 101 or Higher, Shortness of breath, Dizziness, Fainting spells, Chest pain Home Medications: Medications to take at Discharge Doxazosin Mesylate [Cardura] 4 mg PO QHS 07/14/20 Glimepiride 8 mg PO DAILY 07/14/20 Losartan Potassium 100 mg PO DAILY 07/14/20 Metoprolol Succinate 50 mg PO DAILY 07/14/20 Amox/Clavulanate Tablet [Augmentin Tablet] 500 mg PO DAILY #5 tab 07/15/20 Following Prescriptions Were Given to Patient: Amox/Clavulanate Tablet [Augmentin Tablet] 500 mg PO DAILY #5 tab Transmission Status: Received by [email or web address][email or web address] Primary Care Physician: Farooq Jerez MD [Primary Care Provider] - Please follow up with your Primary Care Physician in: 3-5 Days Disposition: Home Minutes spent on discharge:: 35 Patient Condition:: Stable Medical Necessity - Tobacco Use Smoking Status: Never smoker Tobacco Use: Non-smoker Meaningful Use Info Meaningful Use Diagnoses (Choose all that apply): None applicable <Erick Schmitz - Last Filed: 07/15/20 14:55> Discharge Date and Diagnosis - Secondary Discharge Diagnosis Chronic Problems: Chronic Problems Hypertension (Chronic) Diabetes mellitus, type II (Chronic) Morbid obesity (Chronic) Anemia (Chronic) Hospital Course and Treatment Imaging Results: 07/15/20 08:00 Kidney and Bladder [US] Urgent Operations: None Procedures: None Summary of Care Provided: Patient seen and examined independently. Data reviewed. I agree with the above note by the nurse practitioner. The patient is a 60 year old M presents with left lower extremity edema and redness. Patient has a reported history of psoriasis and does have itching associated with that. When patient does have itching usually applies a cream but does scratch. Patient developed confluent macular erythema of his lower extremities. Area was demarcated with a pen line. Today, the erythema was withdrawn from line demarcation. Patient has been responding well with the oral antibiotics of ceftriaxone. With that, patient will be discharged with amoxicillin/clavulanic acid. Patient does have chronic kidney disease stage IV and was to have a renal ultrasound performed today as outpatient. Since the patient was still here, that was performed and then that showed multiple bilateral renal cysts and nonobstructive bilateral renal calculi. Advised patient to follow-up with nephrology. 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 Patient did have relaxed high blood pressure when he presented but that improved. Advised patient continue check his blood pressure at home which he does have a single monitor at home. And also follow-up with his primary care doctor to see if any additional changes would need to be made to his antihypertensive regimen. [] - Physical Exam Vitals/I&O's: Vital Signs Temp Pulse Resp BP Pulse Ox 36.6 C 65 16 159/79 H 93 07/15/20 08:36 07/15/20 10:21 07/15/20 08:36 07/15/20 08:36 07/15/20 08:36 Oxygen Delivery Method Room Air Weight: 140 kg Body Mass Index (BMI) 44.2 Intake and Output for Last 24 Hours 07/13/20 07/14/20 07/15/20 23:59 23:59 23:59 Intake Total 50 / 50 2451.5 / 2451.5 50 / 50 Output Total 1650 / 1650 1000 / 1000 Balance 50 / 50 801.5 / 801.5 -950 / -950 General: Alert, No apparent distress HEENT: Atraumatic, Normocephalic Oral: Moist Mucosa, No Gingival or Mucosal Lesions/ Ulcerations Extremities: - - Erythema withdrawn from line demarcation the left lower extremity. Laboratory Results 07/14/20 16:12: POC Glucose 148 H 07/14/20 21:36: POC Glucose 182 H 07/15/20 05:47: WBC 6.8, RBC 3.65 L, Hgb 10.3 L, Hct 32.3 L, MCV 88.5, MCH 28.2, MCHC 31.9 L, RDW Std Deviation 42.1, RDW Coeff of Sue 12.9, Plt Count 140 L, MPV 9.6 07/15/20 05:47: Sodium 141, Potassium 4.1, Chloride 110 H, Carbon Dioxide 23.0, Anion Gap 8, BUN 36 H, Creatinine 2.95 H, Estim Creat Clear Calc 26.81, Est GFR (MDRD) Af Amer 28 L, Est GFR (MDRD) Non-Af 23 L, BUN/Creatinine Ratio 12.2, Glucose 190 H, Calcium 7.8 L 07/15/20 06:50: POC Glucose 194 H Discharge Diet: Carb Control Diet Discharge Activity: Return to Normal Activity Call your doctor if your incision/area has: Increased Pain/ Swelling, Increased Redness Call your doctor if you observe: Fever of 101 or Higher, Shortness of breath Disposition: Home Minutes spent on discharge:: 35 Patient Condition:: Stable Medical Necessity - Tobacco Use Smoking Status: Never smoker Tobacco Use: Non-smoker Meaningful Use Info Meaningful Use Diagnoses (Choose all that apply): None applicable Inpatient E&M: 12672 Disch Hosp
--- NOTE | 2020-07-15 11:23 | PHA.DC.MC ---
Pharmacy Service has performed discharge medication reconciliation and counseling for this patient. The patient was counseled on the following discharge medications and changes in medications for homegoing were reviewed. 1. AUGMENTIN The Reason for Use, instructions for use, and potential side effects were reviewed for all new medications. The patient's questions regarding all of their medications were answered. The patient was able to verbally demonstrate an understanding of their discharge medications. Home Medications Doxazosin Mesylate [Cardura] 4 mg PO QHS 07/14/20 Glimepiride 8 mg PO DAILY 07/14/20 Losartan Potassium 100 mg PO DAILY 07/14/20 Metoprolol Succinate 50 mg PO DAILY 07/14/20 Amox/Clavulanate Tablet [Augmentin Tablet] 500 mg PO DAILY #5 tab 07/15/20 The patient's discharge medication list was reviewed for discrepancies and discrepancies were resolved.
== END 2020-07-15 11:32 | disposition home or self-care (01) | DRG 603 ==
LOC: ED 22:30 → MS3 07-14 00:33
PROVIDERS: Nurse Practitioner Family; Student in an Organized Health Care Education/Training Program; Admitting Provider Family Medicine; Emergency Provider Emergency Medicine; PCP Family Medicine; Referring Provider Family Medicine
DX: L03.116 Cellulitis of left lower limb (principal); N18.4 Chronic kidney disease, stage 4 (severe); Z68.41 Body mass index [BMI] 40.0-44.9, adult; D64.9 Anemia, unspecified; N28.1 Cyst of kidney, acquired; R79.89 Other specified abnormal findings of blood chemistry; E11.22 Type 2 diabetes mellitus with diabetic chronic kidney disease; I12.9 Hypertensive chronic kidney disease with stage 1 through stage 4 chronic kidney disease, or unspecified chronic kidney disease; E66.01 Morbid (severe) obesity due to excess calories; Z87.442 Personal history of urinary calculi; L40.9 Psoriasis, unspecified; Z79.899 Other long term (current) drug therapy; Z79.84 Long term (current) use of oral hypoglycemic drugs
CPT/HCPCS: 36415; 76770; 80048; 80053; 82962; 83036; 83735; 85025; 85027; 85379; 85610; 85730; 87040; 93971; 97802; 99251; 99285; J7030; J7050; A4216; G0463